=== PATIENT | male | born 1960 | race African-American/Black ===

== ENCOUNTER 2017-07-26 11:28 | Outpatient (CLI) | payer OTHER | END 2017-07-26 11:29 | disposition home or self-care (01) | LOC: BICRAD 11:28 | PROVIDERS: ATTEND Internal Medicine | DX: Z02.71 Encounter for disability determination (principal) ==

== ENCOUNTER 2018-03-09 08:03 | Emergency (ER) | payer OTHER, BC ==
[2018-03-09] MEDS ORDERED: Ketorolac Tromethamine 30 MG/ML VIAL ONE (09:15)
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
== END 2018-03-09 10:06 | disposition home or self-care (01) ==
LOC: ERS 08:03
DX: M54.5 Low back pain (principal); M54.2 Cervicalgia; E78.5 Hyperlipidemia, unspecified; I10 Essential (primary) hypertension; F43.10 Post-traumatic stress disorder, unspecified; V43.52XA Car driver injured in collision with other type car in traffic accident, initial encounter
CPT/HCPCS: 72125; 72131; 96372; J1885

== ENCOUNTER 2019-01-08 11:39 | Emergency (ER) | payer BC, OTHER, SELFPAY | END 2019-01-08 14:02 | disposition home or self-care (01) | LOC: ERS 11:39 | DX: S16.1XXA Strain of muscle, fascia and tendon at neck level, initial encounter (principal); E78.5 Hyperlipidemia, unspecified; I10 Essential (primary) hypertension; F43.10 Post-traumatic stress disorder, unspecified; V89.2XXA Person injured in unspecified motor-vehicle accident, traffic, initial encounter | CPT/HCPCS: 99283 ==